=== PATIENT | female | born 1965 | race Caucasian/White ===

== ENCOUNTER 2020-07-02 11:52 | Emergency (ER) | payer MEDICARE, OTHER ==
[~2020-07-02 11:52] MED LIST: AMLODIPINE BESYL5 MG PO; DEPAKOTE ER500 MG PO; ELIQUIS2.5 MG PO; FLEXERIL 10 MG10 MG PO; GLUCERNA237 ML PO; GLUCOPHAGE1000 MG PO; HUMALOG MI100 UNIT/4 SQ; HUMALOG100 UNIT/3 SC; HYDROCODON-ACE1 EAC2 PO; IRON PO; LANTUS100 UNIT/1 SQ; LEVEMIR FL100 UNIT/1 SQ; LEVOFLOXACIN500 MG PO; LIPITOR TAB 2020 MG PO; LISINOPRIL10 MG PO; MAGOX 400400 MG PO; NORVASC5 MG PO; PLAVIX 75 MG TA75 MG PO; PRINIVIL20 MG PO; PROZAC40 MG PO; SINGULAIR10 MG PO; SYNTHROID125 MCG PO; TRAMADOL HCL50 MG PO; TYLENOL W/CODEIN1 EA PO; VITAMIN D-40400 UNIT PO
[2020-07-02 13:04] LABS: RED BLOOD COUNT 4.33 M/UL (4.00-5.10); WHITE BLOOD COUNT 8.1 K/UL (4.5-11.0)
[2020-07-02 13:24] LABS: BUN/CREATININE RATIO 15 (0-10)
[2020-07-02] MEDS ORDERED: ZOFRAN4 MG PO (18:29)
== END 2020-07-02 18:47 | disposition home or self-care (01) ==
LOC: ER1 11:52
PROVIDERS: Physician Assistant Medical
DX: I95.1 Orthostatic hypotension (principal); E86.0 Dehydration; F19.10 Other psychoactive substance abuse, uncomplicated; K02.9 Dental caries, unspecified; E11.40 Type 2 diabetes mellitus with diabetic neuropathy, unspecified; I10 Essential (primary) hypertension; F17.210 Nicotine dependence, cigarettes, uncomplicated; Z79.4 Long term (current) use of insulin; Z79.02 Long term (current) use of antithrombotics/antiplatelets; Z85.71 Personal history of Hodgkin lymphoma; Z87.19 Personal history of other diseases of the digestive system
CPT/HCPCS: 71045; 80053; 80307; 81001; 82550; 82553; 83874; 84439; 84443; 84484; 85025; 93005; 99285

== ENCOUNTER 2020-10-19 17:41 | Emergency (ER) | payer MEDICARE, OTHER ==
[~2020-10-19 17:41] MED LIST changes: +ZOFRAN4 MG PO
[2020-10-19 20:21] LABS: HEMOGLOBIN 15.5 gm/dl (12.3-15.3); RED BLOOD COUNT 4.71 M/UL (4.00-5.10); WHITE BLOOD COUNT 7.8 K/UL (4.5-11.0)
[2020-10-20] MEDS ORDERED: MIDODRINE HCL5 MG PO (01:22)
== END 2020-10-20 01:40 | disposition home or self-care (01) ==
LOC: ER1 17:41
PROVIDERS: Family Medicine
DX: I95.1 Orthostatic hypotension (principal); E11.9 Type 2 diabetes mellitus without complications; F17.210 Nicotine dependence, cigarettes, uncomplicated
CPT/HCPCS: 71045; 80053; 80307; 81001; 82550; 82553; 83874; 84484; 85025; 93005; 96374; 99285; J2405; J7030

== ENCOUNTER 2020-11-16 17:50 | Inpatient (IN) | payer MEDICARE, OTHER ==
[~2020-11-16] VITALS: Ht 180.3 cm; Wt 74.6 kg
[~2020-11-16 17:50] MED LIST changes: +MIDODRINE HCL5 MG PO
[2020-11-16 18:44] LABS: HEMOGLOBIN 16.3 gm/dl (12.3-15.3); RED BLOOD COUNT 5.03 M/UL (4.00-5.10); WHITE BLOOD COUNT 7.8 K/UL (4.5-11.0)
[2020-11-17] MEDS ORDERED: SYNTHROID137 MCG PO (07:59)
[2020-11-17] MEDS ORDERED: NORVASC5 MG PO (08:44)
[2020-11-17] MEDS ORDERED: LEVEMIR FL100 UNIT/1 SC (09:04)
[2020-11-17] MEDS ORDERED: HUMALOG100 UNIT/3 SC (09:05)
[2020-11-17] MEDS ORDERED: ACETAMINOPHEN500 M1 PO (09:48)
[2020-11-17] MEDS ORDERED: PROVENTIL HFA6.7 GM INH (18:15)
[2020-11-17] MEDS ORDERED: OMEPRAZOLE40 MG PO (18:21)
[2020-11-17] MEDS ORDERED: REQUIP0.25 MG PO (18:22)
[2020-11-17] MEDS ORDERED: TRULICITY1.5 MG/0.5 SC (21:12)
[2020-11-18 02:50] LABS: HEMOGLOBIN 12.9 gm/dl (12.3-15.3); RED BLOOD COUNT 4.04 M/UL (4.00-5.10); WHITE BLOOD COUNT 8.1 K/UL (4.5-11.0)
== END 2020-11-18 14:58 | disposition home or self-care (01) | DRG 638 ==
LOC: ER1 17:50 → CCU 19:44 → CDU 19:44 → CCU 20:28 → M/S 11-17 18:06
PROVIDERS: Emergency Medicine; Internal Medicine; ADMIT Internal Medicine
DX: E11.00 Type 2 diabetes mellitus with hyperosmolarity without nonketotic hyperglycemic-hyperosmolar coma (NKHHC) (principal); C85.90 Non-Hodgkin lymphoma, unspecified, unspecified site; N17.9 Acute kidney failure, unspecified; K76.6 Portal hypertension; G25.81 Restless legs syndrome; F17.210 Nicotine dependence, cigarettes, uncomplicated; J44.9 Chronic obstructive pulmonary disease, unspecified; H54.61 Unqualified visual loss, right eye, normal vision left eye; F15.10 Other stimulant abuse, uncomplicated; E87.5 Hyperkalemia; F12.10 Cannabis abuse, uncomplicated; I95.9 Hypotension, unspecified; E86.0 Dehydration; E11.22 Type 2 diabetes mellitus with diabetic chronic kidney disease; R79.89 Other specified abnormal findings of blood chemistry; H81.399 Other peripheral vertigo, unspecified ear; I12.9 Hypertensive chronic kidney disease with stage 1 through stage 4 chronic kidney disease, or unspecified chronic kidney disease; N18.9 Chronic kidney disease, unspecified; Z79.4 Long term (current) use of insulin; I69.398 Other sequelae of cerebral infarction; Z90.49 Acquired absence of other specified parts of digestive tract; Z90.81 Acquired absence of spleen; Z86.718 Personal history of other venous thrombosis and embolism
CPT/HCPCS: 36415; 36600; 71045; 80048; 80053; 80307; 81001; 82533; 82550; 82553; 82803; 82962; 83605; 83690; 83735; 83874; 83880; 84100; 84439; 84443; 84484; 85025; 85610; 85730; 86140; 87040; 87086; 93005; 96374; 96375; 97162; 99285; A6212; C9113; J0610; J1650; J2405; J7030; U0002

== ENCOUNTER 2021-02-13 14:21 | Inpatient (IN) | payer MEDICARE, OTHER ==
[~2021-02-13] VITALS: Ht 180.3 cm; Wt 68.9 kg
[~2021-02-13 14:21] MED LIST changes: +ACETAMINOPHEN500 M1 PO; -LIPITOR TAB 2020 MG PO; +OMEPRAZOLE40 MG PO; +PROVENTIL HFA6.7 GM INH; +SYNTHROID137 MCG PO; +TRULICITY1.5 MG/0.5 SC
[2021-02-13 15:09] LABS: HEMOGLOBIN 14.8 gm/dl (12.3-15.3); RED BLOOD COUNT 4.67 M/UL (4.00-5.10); WHITE BLOOD COUNT 14.4 K/UL (4.5-11.0)
[2021-02-14 04:47] LABS: HEMOGLOBIN 12.9 gm/dl (12.3-15.3); RED BLOOD COUNT 4.02 M/UL (4.00-5.10); WHITE BLOOD COUNT 15.1 K/UL (4.5-11.0)
[2021-02-14] MEDS ORDERED: SINGULAIR10 MG PO (05:13)
[2021-02-14 05:15] LABS: BUN/CREATININE RATIO 18 (0-10)
[2021-02-14] MEDS ORDERED: LEVEMIR FL100 UNIT/1 INJ (09:04)
[2021-02-14] MEDS ORDERED: HUMALOG100 UNIT/3 INJ (09:05)
[2021-02-14] MEDS ORDERED: FERROUS SULFAT325 MG PO (14:16)
[2021-02-14] MEDS ORDERED: LIPITOR80 MG PO (18:15)
[2021-02-14] MEDS ORDERED: ROPINIROLE HC0.25 MG PO (18:22)
[2021-02-15 07:00] LABS: HEMOGLOBIN 11.5 gm/dl (12.3-15.3); RED BLOOD COUNT 3.64 M/UL (4.00-5.10)
[2021-02-15 07:23] LABS: BUN/CREATININE RATIO 24 (0-10)
[2021-02-15 08:14] LABS: WHITE BLOOD COUNT 19.1 K/UL (4.5-11.0)
[2021-02-16 04:04] LABS: HEMOGLOBIN 10.8 gm/dl (12.3-15.3); RED BLOOD COUNT 3.5 M/UL (4.00-5.10); WHITE BLOOD COUNT 14.4 K/UL (4.5-11.0)
[2021-02-16 04:25] LABS: BUN/CREATININE RATIO 31 (0-10)
[2021-02-16] MEDS ORDERED: DECADRON6 MG PO (08:56)
== END 2021-02-16 12:44 | disposition home or self-care (01) | DRG 871 ==
LOC: ER1 14:21 → MED SURG 4 21:57 → CDU 21:57 → MED SURG 4 02-14 20:34
PROVIDERS: Internal Medicine; Student in an Organized Health Care Education/Training Program; ADMIT Internal Medicine
PROC: 8E0ZXY6 Isolation (ICD-10-PCS; principal; 2021-02-13)
PROC: 3E0333Z Introduction of Anti-inflammatory into Peripheral Vein, Percutaneous Approach (ICD-10-PCS; 2021-02-13)
PROC: XW033E5 Introduction of Remdesivir Anti-infective into Peripheral Vein, Percutaneous Approach, New Technology Group 5 (ICD-10-PCS; 2021-02-14)
PROC: 3E02340 Introduction of Influenza Vaccine into Muscle, Percutaneous Approach (ICD-10-PCS; 2021-02-14)
DX: A41.89 Other specified sepsis (principal); U07.1 COVID-19; J12.82 Pneumonia due to coronavirus disease 2019; J96.01 Acute respiratory failure with hypoxia; J15.9 Unspecified bacterial pneumonia; J44.0 Chronic obstructive pulmonary disease with (acute) lower respiratory infection; E87.2 Acidosis; E03.9 Hypothyroidism, unspecified; I10 Essential (primary) hypertension; F41.9 Anxiety disorder, unspecified; F17.200 Nicotine dependence, unspecified, uncomplicated; Z96.642 Presence of left artificial hip joint; E11.65 Type 2 diabetes mellitus with hyperglycemia; R07.89 Other chest pain; Z86.73 Personal history of transient ischemic attack (TIA), and cerebral infarction without residual deficits; Z85.72 Personal history of non-Hodgkin lymphomas; Z90.49 Acquired absence of other specified parts of digestive tract; Z90.89 Acquired absence of other organs; Z98.890 Other specified postprocedural states; Z80.0 Family history of malignant neoplasm of digestive organs; Z79.82 Long term (current) use of aspirin; Z79.899 Other long term (current) drug therapy; Z79.4 Long term (current) use of insulin; Z23 Encounter for immunization
CPT/HCPCS: 36415; 36600; 71045; 71275; 80048; 80053; 81001; 82550; 82553; 82803; 82962; 83036; 83605; 83735; 83874; 83880; 84100; 84484; 85007; 85025; 85027; 85379; 87040; 87086; 93005; 94640; 94664; 94760; 96374; 97162; 99285; C9113; J0456; J0696; J1100; J1650; J2270; J2405; J3480; J7030; Q9967; U0002

== ENCOUNTER 2021-06-22 12:46 | Emergency (ER) | payer MEDICARE, OTHER, MEDICAID ==
[~2021-06-22 12:46] MED LIST changes: +DECADRON6 MG PO; +FERROUS SULFAT325 MG PO; +HUMALOG100 UNIT/3 INJ; +LEVEMIR FL100 UNIT/1 INJ; +LIPITOR80 MG PO; +ROPINIROLE HC0.25 MG PO
[2021-06-22 14:20] LABS: HEMOGLOBIN 9.9 gm/dl (12.3-15.3); RED BLOOD COUNT 3.88 M/UL (4.00-5.10); WHITE BLOOD COUNT 8.2 K/UL (4.5-11.0)
[2021-06-22 14:51] LABS: BUN/CREATININE RATIO 24 (0-10)
[2021-06-22] MEDS ORDERED: ZOFRAN 4 MG TAB4 MG PO (16:54)
== END 2021-06-22 17:55 | disposition home or self-care (01) ==
LOC: ER1 12:46
PROVIDERS: Preventive Medicine Occupational Medicine
DX: R11.2 Nausea with vomiting, unspecified (principal); E86.0 Dehydration; I10 Essential (primary) hypertension; E11.9 Type 2 diabetes mellitus without complications; F17.210 Nicotine dependence, cigarettes, uncomplicated; Z20.822 Contact with and (suspected) exposure to COVID-19
CPT/HCPCS: 0240U; 71045; 80053; 81001; 82550; 82553; 83605; 83690; 83874; 84484; 85025; 85652; 86140; 87086; 93005; 96374; 96375; 99284; J2405; J7030

== ENCOUNTER 2021-07-27 10:00 | Emergency (ER) | payer MEDICARE, OTHER ==
[~2021-07-27 10:00] MED LIST changes: +ZOFRAN 4 MG TAB4 MG PO
[2021-07-27] MEDS ORDERED: FLEXERIL PO (12:54)
[2021-07-27] MEDS ORDERED: NAPROXEN500 MG PO (12:54)
== END 2021-07-27 14:04 | disposition home or self-care (01) ==
LOC: ER1 10:00
DX: S30.0XXA Contusion of lower back and pelvis, initial encounter (principal); S20.224A Contusion of middle back wall of thorax, initial encounter; E10.9 Type 1 diabetes mellitus without complications; J44.9 Chronic obstructive pulmonary disease, unspecified; F17.210 Nicotine dependence, cigarettes, uncomplicated; W19.XXXA Unspecified fall, initial encounter; Y92.009 Unspecified place in unspecified non-institutional (private) residence as the place of occurrence of the external cause
CPT/HCPCS: 72125; 72128; 96374; 96375; 99284; J2270; J2405; J7030

== ENCOUNTER 2021-09-25 22:32 | Emergency (ER) | payer MEDICARE, OTHER ==
[~2021-09-25 22:32] MED LIST changes: +FLEXERIL PO; +NAPROXEN500 MG PO
== END 2021-09-26 00:42 | disposition expired ==
LOC: ER1 22:32
DX: I46.9 Cardiac arrest, cause unspecified (principal); J44.9 Chronic obstructive pulmonary disease, unspecified; E11.9 Type 2 diabetes mellitus without complications; F17.200 Nicotine dependence, unspecified, uncomplicated
CPT/HCPCS: 99285; J0171